=== PATIENT | female | born 1935 | race Caucasian/White ===

== ENCOUNTER 2021-06-15 05:37 | Inpatient (IN) | payer MEDICARE, BC ==
[2021-06-14 20:30] VITALS: BP 131/60
[~2021-06-15] VITALS: Ht 165.1 cm; Wt 75.6 kg
[2021-06-15 05:38] VITALS: BP 188/71
[2021-06-15] MEDS ORDERED: SYNTHROID200 MCG PO (05:42)
[2021-06-15] MEDS ORDERED: COZAAR 25 MG TA25 M1 PO (05:43)
[2021-06-15] MEDS ORDERED: EFFER-K 10 MEQ10 ME1 PO (05:43)
[2021-06-15] MEDS ORDERED: LASIX 40 MG TAB40 MG PO (05:43)
[2021-06-15] MEDS ORDERED: PROAIR HFA8.5 GM INH (05:44)
[2021-06-15] MEDS ORDERED: BROVANA15 MCG/2 M INH (05:44)
[2021-06-15 06:39] LABS: ABSOLUTE BASOPHILS 0.1 thou/uL (0.0-0.2); ABSOLUTE EOSINOPHILS 0.1 thou/uL (0.0-0.7); ABSOLUTE LYMPHOCYTES 1.1 thou/uL (0.8-5.3); ABSOLUTE MONOCYTES 0.5 thou/uL (0.0-1.2); ABSOLUTE NEUTROPHILS 6.1 thou/uL (1.6-8.1); BASOPHILS 0.8 %; EOSINOPHILS 1.1 %; HEMATOCRIT 30.3 % (37.0-47.0); HEMOGLOBIN 10.1 gm/dL (12.0-15.0); LYMPHOCYTES 14.4 %; MCH 31.1 pg (26.0-34.0); MCHC 33.5 g/dL (28.0-37.0); MCV 92.9 fL (80.0-100.0); MONOCYTES 6.5 %; MPV 7.2 fl. (7.2-11.1); NUCLEATED RBCS 0 /100WBC; PLATELET COUNT* 233 thou/uL (150-400); POLYS 77.2 %; RBC 3.26 mil/uL (4.20-5.00); RDW-CV 13.7 % (10.5-14.5); WBC 7.9 thou/uL (4.0-11.0)
[2021-06-15 06:47] LABS: CALCIUM 8.9 mg/dL (8.5-10.1); CREATININE 0.9 mg/dL (0.6-1.3)
[2021-06-15 06:51] LABS: ALBUMIN 3.3 g/dL (3.4-5.0); TOTAL BILIRUBIN 0.3 mg/dL (<0.1-1.0); TOTAL PROTEIN 6.8 g/dL (6.4-8.2)
[2021-06-15 07:03] LABS: APTT 24.2 Seconds (25.0-31.3); PROTIME 9.9 Seconds (9.20-11.50)
[2021-06-15 13:14] VITALS: BP 174/60
[2021-06-15 13:45] VITALS: BP 139/52
--- NOTE | 2021-06-15 13:45 | NUR ---
ER ADMIT TO 210 ER TELEPHONE REPORT GIVEN PRIOR TO ARRIVAL PATIENT TO VIA CART 1 ASSIST TO BED PATIENT DENIES PAIN PATIENT ORIENTED TO ROOM CALL LIGHT
[2021-06-15 15:28] VITALS: BP 127/55
[2021-06-15 20:30] VITALS: BP 131/60
[2021-06-16 00:51] VITALS: BP 134/56
[2021-06-16 04:56] LABS: HEMATOCRIT 29.3 % (37.0-47.0); HEMOGLOBIN 9.7 gm/dL (12.0-15.0); MCHC 33.2 g/dL (28.0-37.0); MCV 93.3 fL (80.0-100.0); MPV 7.6 fl. (7.2-11.1); RBC 3.14 mil/uL (4.20-5.00); RDW-CV 13.8 % (10.5-14.5); WBC 7.7 thou/uL (4.0-11.0)
[2021-06-16 05:06] LABS: CALCIUM 8.6 mg/dL (8.5-10.1); POTASSIUM 4.1 mmol/L (3.5-5.1)
[2021-06-16 08:00] VITALS: BP 143/71
--- NOTE | 2021-06-16 14:53 | NUR ---
CM ASSESSMENT ASSESSMENT COMPLETED WITH PT. PT ALERT AND ORIENTED. PT LIVES ALONE IN SINGLE STORY HOME, BUT HAS SUPPORT OF CHILDREN WHO ROTATE IN TO HELP CARE FOR PT. CHILDREN HELP WITH MEDICATION, ERRANDS, MEALS, AND ASSIT WITH DRESSING NOW THAT PT HAS PAIN IN RIGHT SHOULDER. PT REPORTS SHE HAS A WALKER SHE DOES NOT USE AND INSTEAD USES A CANE. PT REPORTS SHE USES 4L O2 AT HOME WHICH IS PROVIDED BY [facility]. PT EXPRESSING WEAKNESS AND OPEN TO REFERRAL TO SNF/REHAB WHEN MED CLEARED. CM TO FOLLOW FOR DC PLANNING.
[2021-06-16 18:03] VITALS: BP 154/64
--- NOTE | 2021-06-16 19:54 | NUR ---
PT HAS HAD NAUSEA AND EMESIS ALL DAY. PT ONLY THREW UP 100CC OF EMESIS MOSTLY WATER LOOKING FLUIDS. PT DID NOT GO DOWN FOR HER MRI DUE TO THE NAUSEA, WILL CONTINUE TO MONITOR PLAN OF CARE.
[2021-06-16 20:00] VITALS: BP 125/50
--- NOTE | 2021-06-17 05:13 | NUR ---
ASSUMED PT CARE AT 1930. PT ALERT AND ORIENTED X4, POLITE AND COOPERATIVE WITH CARES. NO C/O NAUSEA OR VOMITING. ON SCHEDULED ZOFRAN. WEARING 4L 02 PER NC, HOME REGIMEN. SALINE LOCK TO LEFT FOREARM. DELGADO TO DD. CALL LIGHT IN REACH, BED ALARM ON FOR SAFETY. HOURLY ROUNDING IN PROGRESS, WILL CONTINUE TO MONITOR.
[2021-06-17 08:15] VITALS: BP 137/54
--- NOTE | 2021-06-17 14:59 | NUR ---
CM FOLLOWUP PT NOT MED CLEAR. PT PENDING MRI AND CT. UPON COMPLETION, PT TO HAVE OT/PT EVAL FOR SNF. CM TO FOLLOW.
--- NOTE | 2021-06-17 15:52 | NUR ---
ALERT AND ORIENTED X4. UP WITH 1 ASSIST, AND GAIT BELT FOR PIVOT TRANSFER TO CHAIR. USING PO PAIN MEDICATION TO HELP WITH BACK AND RIGHT SIDE HIP PAIN. DELGADO CATHETER PATENT WITH CLEAR YELLOW URINE. MRI DONE TODAY AND MESSAGE SENT TO ABOUT REPORT. FALL PRECAUTIONS IN PLACE. CALL LIGHT WITHIN REACH. TAKES PILLS WITHOUT DIFFICULTY.
[2021-06-17 16:07] VITALS: BP 125/57
[2021-06-18 01:25] VITALS: BP 129/61
[2021-06-18 08:00] VITALS: BP 123/63
[2021-06-18 16:00] VITALS: BP 106/62
--- NOTE | 2021-06-18 16:44 | NUR ---
PATIENT UP TO CHAIR THIS SHIFT. WORKED WITH PT. NO COMPLAINTS OF PAIN, REFUSED PRN TRAMADOL. LIDOCAINE PATCH IN PLACE TO BACK. IV LEAKING THIS SHIFT WITH ROUTINE FLUSH, PER DR. CAVAZOS MAY LEAVE OUT. DELGADO DRAINING DARK YELLOW URINE. PATIENT GIVEN SUPPOSITORY THIS SHIFT, PATIENT DID HAVE A SMALL BM. UP WITH WALKER AND GAIT BELT. [address] AT 4L NC.
[2021-06-18 20:13] VITALS: BP 147/64
[2021-06-19 01:48] VITALS: BP 146/56
[2021-06-19 08:01] VITALS: BP 145/56
[2021-06-19 16:00] VITALS: BP 144/56
--- NOTE | 2021-06-19 17:31 | NUR ---
PT UP WITH WALKER AND 1X ASST. PT IS ON 4L 02. PT HAD NO COMPLAINTS OF PAIN THIS SHIFT. PT HAD NO COMPLAINTS OF NAUSEA THIS SHIFT AND REFUSED ZOFRAN. PT IS A&O X4. PT IS DC'ING TO REHAB Wednesday06-20-21. PT SITTING IN CHAIR WITH DAUGHTER IN RM. CALL LIGHT IN REACH.
[2021-06-19 20:14] VITALS: BP 151/68
[2021-06-19] MEDS ORDERED: TRAMADOL 50 MG50 MG PO (23:15)
[2021-06-19] MEDS ORDERED: LIDODERM1 EACH TOP (23:16)
[2021-06-20 01:22] VITALS: BP 106/42
[2021-06-20 08:11] VITALS: BP 124/51
--- NOTE | 2021-06-20 09:32 | NUR ---
PT ACCEPTED TO [facility]. CM DISCUSSED AND EDU PT'S DTR, AT BEDSIDE AND VIA PHONE, ON SNF. PT ALSO AGREEABLE TO SNF. CM EXPLAINED D/C PLAN AND PT WOULD LIVE IN THE MORNING, CM WILL SET UP TRANSPORTATION. DTRS AGREEABLE TO PLAN. CM CALLED [facility] FOR DTRS TO GET VISITORS POLICY. CM ARRANGED EXPRESSED TRANSPORTATION, W/C AND 4L OF O2. NURSE UPDATE WITH TIME AND NUMBER TO CALL REPORT [phone]. US TO MAKE CHART COPY. CM FAXED D/C ORDERS TO [facility] [phone].
--- NOTE | 2021-06-20 11:19 | NUR ---
PT UP WITH 1 X ASST. PT SANDY WALSH FOR TRANSFER TO [facility]. PT REFUSED ZOFRAN STATES SHE IS NOT HAVING ANY NAUSEA. REPORT GIVEN TO [facility] AT [facility] AT 10:15AM. PT IN RM VINCENT FOR GURMEET WITH CALL LIGHT IN REACH.
== END 2021-06-20 11:30 | DRG 538 ==
LOC: M.ERS 05:37 → M.2W 08:31 → M.TBA-ER 08:31 → M.2W 14:13
PROVIDERS: Personal Emergency Response Attendant; ADMIT Internal Medicine; ATTEND Internal Medicine
DX: S76.011A Strain of muscle, fascia and tendon of right hip, initial encounter (principal); S39.013A Strain of muscle, fascia and tendon of pelvis, initial encounter; M25.80 Other specified joint disorders, unspecified joint; Z20.822 Contact with and (suspected) exposure to COVID-19; S43.421A Sprain of right rotator cuff capsule, initial encounter; M25.551 Pain in right hip; J44.9 Chronic obstructive pulmonary disease, unspecified; E03.9 Hypothyroidism, unspecified; Z60.2 Problems related to living alone; M75.41 Impingement syndrome of right shoulder; I10 Essential (primary) hypertension; M43.16 Spondylolisthesis, lumbar region; M16.11 Unilateral primary osteoarthritis, right hip; Z79.899 Other long term (current) drug therapy; X58.XXXA Exposure to other specified factors, initial encounter; Y93.89 Activity, other specified; Y92.89 Other specified places as the place of occurrence of the external cause; Y99.8 Other external cause status